=== PATIENT | female | born 2000 | race Caucasian/White ===

== ENCOUNTER 2024-04-16 06:01 | Emergency (ER) | payer MEDICAID, BC, SELFPAY ==
[2024-04-16 06:02] VITALS: BP 120/82
[2024-04-16 06:49] LABS: % Basophils 0.4 % (0-2); % Eosinophils 1.9 % (0-6); % Immature Granulocytes 0.2 % (0-0.5); % Lymphocytes 23.2 % (20.5-51.1); % Monocytes 5.9 % (1.7-9.3); % Neutrophils 68.4 % (42.2-75.2); Absolute Eosinophils 0.2 10^3/uL (0-0.7); Absolute Lymphocytes 2.2 10^3/uL (1.2-3.4); Absolute Monocytes 0.6 10^3/uL (0.1-0.6); Absolute Neutrophils 6.5 10^3/uL (1.4-6.5); Hematocrit 36.4 % (37.0-47.0); Mean Corpuscular Hgb 27.8 pg (27.0-31.0); Mean Corpuscular Volume 84.3 fL (81.0-99.0); Nucleated Red Blood Cells % 0 %; Platelet Count 325 10^3/uL (130-400); Red Blood Cell Count 4.32 10^6/uL (4.20-5.40); Red Cell Dist. Width 15.1 % (11.5-14.5); White Blood Cell Count 9.5 10^3/uL (4.8-10.8)
[2024-04-16 06:57] LABS: HCG, Serum Qualitative Screen Negative
[2024-04-16 07:06] LABS: ALT (SGPT) 17 U/L (0-35); AST (SGOT) 19 U/L (14-36); Albumin 4.4 g/dl (3.5-5.0); Alkaline Phosphatase 59 U/L (38-126); Blood Urea Nitrogen 11 mg/dl (7-17); Calcium 8.8 mg/dl (8.4-10.2); Carbon Dioxide 26 mmol/L (22-30); Chloride 100 mmol/L (98-107); Glucose 116 mg/dl (70-99); Potassium 4.3 mmol/L (3.5-5.1); Sodium 132 mmol/L (135-145); Total Bilirubin 0.6 mg/dl (0.2-1.3); Total Protein 6.8 g/dl (6.3-8.2); eGFR > 60.00
--- NOTE | 2024-04-16 09:20 | ED.GENMED ---
History of Present Illness
General
Chief Complaint: Abdominal Pain
Source: patient
Exam Limitations: none
Time Seen by Provider: 04/16/24 09:00
History of Present Illness
History of Present Illness:
23-year-old female woke at 4 AM with lower abdominal pain. Points to bilateral lower pelvic pain. Significantly improved at this time. More of a dull ache. Some nausea initially no vomiting. No back pain flank pain urinary symptoms. No fever
or chills. No vaginal discharge or bleeding. She is 3 weeks into her cycle.
Past History
Past History
ED Past Medical History: Psychiatric
ED Past Surgical History: Other (Thorpe teeth)
Social History
Tobacco: Non-smoker
Alcohol: None
Drug: None
Personal: Single
Living: with family
Review of Systems
Review of Systems
All Other Systems: Not applicable
Constitutional: Denies fever or chills
: Denies dysuria, bleeding or discharge
Phy Exam
Physical Exam
Physical Exam:
GENERAL: Alert and oriented in no apparent distress
EYE: Orbits normal.
NECK: Supple
CARDIAC: Regular rate and rhythm without any obvious murmurs.
LUNGS: Clear breath sounds,normal
ABDOMEN: Soft, no distention. Bowel sounds present. No rebound or guarding no mass or hernia. Very very minimal bilateral lower pubic tenderness. No tenderness at McBurney's point. No CVA tenderness
NEUROLOGICAL: Alert and oriented , grossly non-focal
SKIN: Warm and dry, no rash or lesion, no discoloration, skin intact.
MUSCULOSKELETAL: No edema,no deformity.Good color
PSYCH: Normal and appropriate interaction.
Course
Orders/Labs/Results
Orders:
Orders
04/16/24 06:07
Test Result ONCE
04/16/24 06:34
Complete Blood Count/With Diff Urgent
Comprehensive Metabolic Panel Urgent
HCG, Serum Qualitative Screen Urgent
Lipase Urgent
Comment: ADD ON
04/16/24 09:09
Add On- LAB Urgent
Tests Added?: lipase
04/16/24 09:18
0.9% Sodium Chloride 1000 ml [Nss] 1,000 ml IV BOLUS
04/16/24 09:19
US Abdomen - Appendix Only Urgent
Comment:
Reason For Exam: pelvic pain
US Pelvis Only (non-obstetric) Urgent
Comment:
Reason For Exam: pelvic pain
US Renal With Bladder Urgent
Comment: bladder not full ok, looking at ureteral jets
Reason For Exam: pelvic pain
04/16/24 09:30
Urinalysis Urgent
Date Specimen was Collected: 04/16/24
Time Specimen was Collected: 06:07
Urine Microscopic Urgent
Date Specimen was Collected: 04/16/24
Time Specimen was Collected: 06:07
Abnormal Lab Results
04/16/24 04/16/24
06:34 09:30
Hct 36.4 L %
(37.0-47.0)
RDW 15.1 H %
(11.5-14.5)
Sodium 132 L mmol/L
(135-145)
Glucose 116 H mg/dl
(70-99)
Urine Bacteria Few A
(Negative)
Urine Albumin 1+ A
(Neg - Trace)
04/16/24 06:34
04/16/24 06:34
Vital Signs
Initial and Last Documented VS:
Initial Vital Signs
Temp Pulse Resp BP Pulse Ox
97.5 F 90 20 120/82 98
04/16/24 06:02 04/16/24 06:02 04/16/24 06:02 04/16/24 06:02 04/16/24 06:02
Last Documented Vital Signs
Temp Pulse Resp BP Pulse Ox
97.5 F 58 20 115/82 100
04/16/24 06:02 04/16/24 09:30 04/16/24 09:30 04/16/24 09:30 04/16/24 09:30
MDM/Problems Addressed
Differential Diagnosis Includes:
Very low suspicion for acute serious pathology. Possible cyst or ruptured cyst. Highly doubt torsion. Doubt appendicitis. Cannot kidney stone unlikely. However workup in progress for these possible etiologies
*Radiology
Radiology exam reviewed: radiology read reviewed (Hemorrhagic cyst right ovary. Approximately 3 x 2 cm. Small amount of increased free fluid. Good flow to both ovaries)
*Pulse Oximetry
Patient hypoxic: no
*Critical Care Note
Total Time (30-74mins, 75-104mins- exclusive of procedures): Not Applicable
Update Note
Update Note:
Patient has remained clinically stable and nontoxic. In no distress. Significant improving symptoms. Likely ruptured cyst. Copy report given to patient and mother.
ED Attending Note
-
Portions of this chart may have been created with voice recognition software.� Occasional wrong word or��sound alike� substitutions may have occurred due to the inherent limitations of voice recognition software.
Discharge Plan
Departure
Patient Disposition: Home (Routine Discharge)
Date of Disposition: 04/16/24
Time of Disposition: 11:13
Patient with high blood pressure during this ER visit?: No
Discharge Problem:
Acute pelvic pain, Suspect ruptured right ovarian hemorrhag
Instructions: Ovarian cysts, Pelvic Pain ED, BLOOD PRESSURE
Prescriptions:
No Action
Zoloft Oral Concentrate:
0.1 mg PO DAILY
Referrals:
Ramone Seth CRNP [Family Provider] - Follow up in 2-3 days
Activity Restrictions/Additional Instructions:
Follow-up ultrasound as we discussed in 6 weeks
Also as we discussed, return immediately with sudden increase in pain fever or any other concerning symptoms
Interventions
Interventions:
*Risk Screen - Suicide Last Done: 04/16/24 06:02
*Neglect/Abuse Screening Last Done: 04/16/24 06:02
*Nursing Disposition Last Done: 04/16/24 11:46
IM-Wfnmxe-Cajhxbtfad Assessment Last Done: 04/16/24 08:22
Discharge Date and Time
Discharge Date/Time: 04/16/24 11:47
Print Language: MARTINIQUAIS
[2024-04-16 09:30] VITALS: BP 115/82; BMI 28.1
[2024-04-16 09:42] LABS: Urine Albumin 1+ (Neg - Trace); Urine Bilirubin Negative (Negative); Urine Character Clear (Clear); Urine Color Yellow; Urine Glucose Negative (Negative); Urine Ketone Negative (Negative); Urine Leukocyte Negative (Negative); Urine Nitrite Negative (Negative); Urine Occult Blood Negative (Negative); Urine Specific Gravity 1.015 (<1.030); Urine Urobilinogen Negative (Neg - 1+)
[2024-04-16 09:42] LABS: Lipase 77 U/L (23-300)
[2024-04-16 09:52] LABS: Urine Bacteria Few (Negative); Urine Red Blood Cell 0-2 /HPF (0-2); Urine Squamous Cell 16-20 /LPF (Few); Urine White Cell 0-2 /HPF (0-5)
== END 2024-04-16 11:47 | disposition home or self-care (01) ==
LOC: EMR 06:01
PROVIDERS: Emergency Medicine; EMERGENCY PHYSICIAN Emergency Medicine; FAMILY PHYSICIAN Nurse Practitioner Primary Care
DX: R10.2 Pelvic and perineal pain (principal); R11.0 Nausea; N83.201 Unspecified ovarian cyst, right side
CPT/HCPCS: 99284; 76705; 76770; 76856; 80053; 81003; 81015; 83690; 84703; 85025